=== PATIENT | female | born 1955 | race African-American/Black ===

== ENCOUNTER → 2018-03-01 | Outpatient (CLI) | payer OTHER ==
--- NOTE | 2018-03-01 09:01 | WOMENS IMAGING REPORT ---
EXAM DESCRIPTION: BILAT SCREENING MAMMO W/CAD COMPLETED DATE/TIME: 03/01/2018 8:52 am REASON FOR STUDY: SCREENING MAMMO Z12.31 ENCNTR SCREEN MAMMOGRAM FOR MALIGNANT NEOPLASM OF MIGUEL COMPARISON: 02/11/2016 and 02/01/2011. TECHNIQUE: Standard craniocaudal and mediolateral oblique views of each breast recorded using [employer] acquisition. LIMITATIONS: None. FINDINGS: No masses, calcifications or architectural distortion. No areas of suspicion. Read with the assistance of CAD. .[facility] - R2 Cenova Version 1.3 .[facility] - R2 Cenova Version 1.3 .[facility] - R2 Cenova Version 2.4 .[facility] - R2 Cenova Version 2.4 .[facility] - R2 [employer]velope Folding Machine Operator Version 9.2 IMPRESSION: NORMAL MAMMOGRAM. BIRADS 1. BREAST DENSITY: b. There are scattered areas of fibroglandular density. BIRAD: 1 NEGATIVE RECOMMENDATION: ROUTINE SCREENING COMMENT: The patient has been notified of the results by letter per SA requirements. Additional no tification policies are in place for contacting patient with suspicious or incomplete findings. Quality ID #[id number]: The [employer] recommends an annual screening mammogram for women aged 40 years or over. This facility utilizes a reminder system to ensure that all patients receive reminder letters, and/or direct phone calls for appointments. This includes reminders for routine scr eening mammograms, diagnostic mammograms, or other Breast Imaging Interventions when appropriate. Th is patient will be placed in the appropriate reminder system. The [employer] (ACR) has developed recommendations for screening MRI of the breast s in certain patient populations, to be used in conjunction with mammography. Breast MRI surveillanc e may be appropriate for women with more than 20% lifetime risk of developing breast cancer as deter mined by genetic testing, significant family history of the disease, or history of mantle radiation f or Hodgkins Disease. ACR Practice Guidelines 2008. TECHNICAL DOCUMENTATION: FINDING NUMBER: (1) ASSESSMENT: (1) JOB ID: [id number] [employer]- All Rights Reserved Reading location - IP/workstation name: [facility]
== END ==
LOC: WI 08:28
PROVIDERS: ATTEND Nurse Practitioner Family
DX: Z12.31 Encounter for screening mammogram for malignant neoplasm of breast (principal)
CPT/HCPCS: 77067

== ENCOUNTER 2018-12-19 11:14 | Emergency (ER) | payer OTHER ==
--- NOTE | 2018-12-19 11:56 | ER Document Report ---
ED Medical Screen (RME) - General Chief Complaint: Arm Pain Stated Complaint: ARM PAIN Time Seen by Provider: 12/19/18 11:42 Primary Care Provider: HIRA BELL FNP-C [Primary Care Provider] - Follow up as needed Mode of Arrival: Ambulatory Information source: Patient Notes: Patient is a 63-year-old female presenting to the emergency department with pain to her left arm that radiates behind her left shoulder blade. She reports this is a dull achy pain that is persistent. She denies any injury to this area. She does report the pain is been going on for 30 days. She denies any associated chest pain, shortness of breath or nausea however patient does have a history of hypertension hypothyroidism. Due to patient's age and the fact that she has not had any injury I do believe we need to do a cardiac work-up on her as well as evaluation of the left arm pain. Patient is in agreements with this plan. Patient was initially seen in super track as she was triaged as an ANAHI for, upgraded to ANAHI 3H and orders placed. Exam: Patient alert, oriented, answering all questions appropriately. Lung sounds clear and equal bilaterally. Heart sounds S1-S2 present, normal rate, normal rhythm. No obvious swelling, erythema or abnormality with left arm. Full range of motion of left arm. I have greeted and performed a rapid initial assessment of this patient. A comprehensive ED assessment and evaluation of the patient, analysis of test results and completion of the medical decision making process will be conducted by additional ED providers. I have specifically instructed the patient or family members with the patient to immediately return to any nursing staff should anything change in the patient's condition or with their chief complaint. This medical record was dictated with voice recognizing software. There may be grammatical, syntax errors that are unintended. TRAVEL OUTSIDE OF THE [place] IN LAST 30 DAYS: No - Related Data Allergies/Adverse Reactions: No Known Allergies Allergy (Verified 12/19/18 11:17) Past Medical History - Past Medical History Cardiac Medical History: Reports: Hx Hypertension Endocrine Medical History: Reports: Hx Hypothyroidism Musculoskeltal Medical History: Reports Hx Arthritis, Denies Hx Musculoskeletal Trauma Infectious Medical History: Denies: Hx MRSA Past Surgical History: Reports: Hx Oral Surgery - wisdom teeth - Immunizations Immunizations up to date: Yes Hx Diphtheria, Pertussis, Tetanus Vaccination: Yes Physical Exam - Vital signs Vitals: Temp Pulse Resp BP Pulse Ox 98.6 F 79 18 135/85 H 96 12/19/18 11:26 12/19/18 11:26 12/19/18 11:12/19/18 11:12/19/18 11:26 Course - Vital Signs Vital signs: Temp Pulse Resp BP Pulse Ox 98.6 F 79 18 135/85 H 96 12/19/18 11:26 12/19/18 11:26 12/19/18 11:26 12/19/18 11:26 12/19/18 11:26 Doctor's Discharge - Discharge Referrals: HIRA BELL, SHAISTA-C [Primary Care Provider] - Follow up as needed
--- NOTE | 2018-12-19 12:54 | RADIOLOGY REPORT (SQ) ---
EXAM DESCRIPTION: HUMERUS LEFT COMPLETED DATE/TIME: 12/19/2018 12:39 pm REASON FOR STUDY: L arm pain COMPARISON: None. NUMBER OF VIEWS: Two views. TECHNIQUE: Two radiographic images were acquired of the left humerus to include elbow and shoulder i n at least one projection. LIMITATIONS: None. FINDINGS: MINERALIZATION: Normal. BONES: No acute fracture or dislocation. No worrisome bone lesions. SOFT TISSUES: No obvious swelling or foreign body. OTHER: Mild degenerative changes at the shoulder. IMPRESSION: NEGATIVE STUDY OF THE LEFT HUMERUS. NO RADIOGRAPHIC EVIDENCE OF ACUTE INJURY. TECHNICAL DOCUMENTATION: JOB ID: [id number] [employer]- All Rights Reserved Reading location - IP/workstation name: [email or web address]
--- NOTE | 2018-12-19 12:55 | RADIOLOGY REPORT (SQ) ---
EXAM DESCRIPTION: CHEST 2 VIEWS COMPLETED DATE/TIME: 12/19/2018 12:34 pm REASON FOR STUDY: L arm pain/shoulder pain/cardiac work-up COMPARISON: None. EXAM PARAMETERS: NUMBER OF VIEWS: two views TECHNIQUE: Digital Frontal and Lateral radiographic views of the chest acquired. RADIATION DOSE: NA LIMITATIONS: none FINDINGS: LUNGS AND PLEURA: No opacities, masses or pneumothorax. No pleural effusion. MEDIASTINUM AND HILAR STRUCTURES: No masses or contour abnormalities. HEART AND VASCULAR STRUCTURES: Heart normal size. No evidence for failure. BONES: No acute findings. HARDWARE: None in the chest. OTHER: No other significant finding. IMPRESSION: NO ACUTE RADIOGRAPHIC FINDING IN THE CHEST. TECHNICAL DOCUMENTATION: JOB ID: [id number] [employer]- All Rights Reserved Reading location - IP/workstation name: [email or web address]
--- NOTE | 2018-12-19 13:17 | ER Document Report ---
ED General - General Chief Complaint: Arm Pain Stated Complaint: ARM PAIN Time Seen by Provider: 12/19/18 11:42 Primary Care Provider: HIRA BELL FNP-C [Primary Care Provider] - Follow up as needed Mode of Arrival: Ambulatory TRAVEL OUTSIDE OF THE [place] IN LAST 30 DAYS: No - HPI Patient complains to provider of: Left arm pain Notes: 63-year-old female presents with approximately 6 weeks of dull aching left upper extremity pain. It was hurting her worse this morning she decided to get it checked out. Pain is 8/10 throbbing in nature without radiation nothing makes it better or worse. Patient denies any exertional component or change denies nausea vomiting shortness of breath cough or chest pain. No history of coronary artery disease. - Related Data Allergies/Adverse Reactions: No Known Allergies Allergy (Verified 12/19/18 11:17) Past Medical History - General Information source: Patient - Social History Smoking Status: Unknown if Ever Smoked Family History: DM, Hypertension Patient has suicidal ideation: No Patient has homicidal ideation: No - Past Medical History Cardiac Medical History: Reports: Hx Hypertension Endocrine Medical History: Reports: Hx Hypothyroidism Musculoskeletal Medical History: Reports Hx Arthritis, Denies Hx Musculoskeletal Trauma Infectious Medical History: Denies: Hx MRSA Past Surgical History: Reports: Hx Oral Surgery - wisdom teeth - Immunizations Immunizations up to date: Yes Hx Diphtheria, Pertussis, Tetanus Vaccination: Yes Review of Systems - Review of Systems Notes: REVIEW OF SYSTEMS: CONSTITUTIONAL: -fevers, -chills EENT: -eye pain, -difficulty swallowing, -nasal congestion CARDIOVASCULAR: -chest pain, -syncope. RESPIRATORY: -cough, -SOB GASTROINTESTINAL: -abdominal pain, -nausea, -vomiting, -diarrhea GENITOURINARY: -dysuria, -hematuria MUSCULOSKELETAL: -back pain, -neck pain SKIN: -rash or skin lesions. HEMATOLOGIC: -easy bruising or bleeding. LYMPHATIC: -swollen, enlarged glands. NEUROLOGICAL: -altered mental status or loss of consciousness, -headache, -ne urologic symptoms PSYCHIATRIC: -anxiety, -depression. ALL OTHER SYSTEMS REVIEWED AND NEGATIVE. Physical Exam - Vital signs Vitals: Temp Pulse Resp BP Pulse Ox 98.6 F 79 18 135/85 H 96 12/19/18 11:26 12/19/18 11:26 12/19/18 11:26 12/19/18 11:26 12/19/18 11:26 - Notes Notes: PHYSICAL EXAMINATION: GENERAL: Well-appearing, well-nourished and in no acute distress. HEAD: Atraumatic, normocephalic. EYES: Pupils equal round and reactive to light, extraocular movements intact, sclera anicteric, conjunctiva are normal. ENT: nares patent, oropharynx clear without exudates. Moist mucous membranes. NECK: Normal range of motion, supple without lymphadenopathy LUNGS: Breath sounds clear to auscultation bilaterally and equal. No wheezes rales or rhonchi. HEART: Regular rate and rhythm without murmurs ABDOMEN: Soft, nontender, normoactive bowel sounds. No guarding, no rebound. No masses appreciated. EXTREMITIES: Normal range of motion, no pitting or edema. No cyanosis. NEUROLOGICAL: Cranial nerves grossly intact. Normal speech, normal gait. Normal sensory and motor exams. PSYCH: Normal mood, normal affect. SKIN: Warm, Dry, normal turgor, no rashes or lesions noted. Course - Re-evaluation Re-evalutation: 12/19/18 14:08 63-year-old female presents with long-standing left upper extremity pain. Reassuring physical exam. Patient's EKG is no ischemic changes, extensive lab work-up shows no leukocytosis or other gross abnormality. Troponin is negative. Patient will be discharged home follow-up PCP given strict return precautions anything should change or worsen please return - Vital Signs Vital signs: Temp Pulse Resp BP Pulse Ox 98.6 F 79 16 155/85 H 100 12/19/18 11:26 12/19/18 11:26 12/19/18 13:10 12/19/18 13:10 12/19/18 13:10 - Laboratory Result Diagrams: 12/19/18 12:46 12/19/18 12:46 Laboratory results interpreted by me: 12/19/18 12/19/18 12:46 12:46 MCV 78 L MCH 25.5 L RDW 15.4 H Total Bilirubin 0.1 L - EKG Interpretation by Me Additional EKG results interpreted by me: 12/19/18 13:59 Normal sinus rhythm, 62 bpm, no ST elevations or depression, normal IA, no pathologic T wave inversions. Discharge - Discharge Clinical Impression: Arm pain Qualifiers: Laterality: left Qualified Code(s): M79.602 - Pain in left arm Condition: Stable Disposition: HOME, SELF-CARE Instructions: Chest Wall Pain ([facility]) Referrals: HIRA BELL FNP-C [Primary Care Provider] - Follow up as needed
[2018-12-19 13:37] LABS: ABSOLUTE EOSINOPHILS # (AUTO) 0.2 10^3/uL (0.0-0.6); ABSOLUTE LYMPHOCYTES (AUTO) 2.4 10^3/uL (0.5-4.7); ABSOLUTE MONOCYTES (AUTO) 0.3 10^3/uL (0.1-1.4); ABSOLUTE NEUT (AUTO) 2.5 10^3/uL (1.7-8.2); BASOPHILS % (AUTO) 0.9 % (0-2); EOSINOPHILS % (AUTO) 3.5 % (0-6); HEMATOCRIT 37.2 % (36.0-47.0); HEMOGLOBIN 12.1 g/dL (12.0-15.5); LYMPHOCYTES % (AUTO) 43.7 % (13-45); MEAN CORPUSCULAR HEMOGLOBIN 25.5 pg (27.0-33.4); MEAN CORPUSCULAR HGB CONC 32.6 g/dL (32.0-36.0); MEAN CORPUSCULAR VOLUME 78 fl (80-97); MONOCYTES % (AUTO) 5.1 % (3-13); PLATELET COUNT 305 10^3/uL (150-450); RED BLOOD COUNT 4.75 10^6/uL (3.72-5.28); RED CELL DISTRIBUTION WIDTH 15.4 % (11.5-14.0); SEGMENTED NEUTROPHILS % (AUTO) 46.8 % (42-78); TOTAL CELLS COUNTED % (AUTO) 100 %; WHITE BLOOD COUNT 5.4 10^3/uL (4.0-10.5)
[2018-12-19 13:46] LABS: ALBUMIN 4.3 g/dL (3.5-5.0); ALKALINE PHOSPHATASE 91 U/L (38-126); ANION GAP 8 (5-19); ASPARTATE AMINO TRANSFERASE 26 U/L (14-36); BILIRUBIN,DIRECT 0.1 mg/dL (0.0-0.4); BILIRUBIN,TOTAL 0.1 mg/dL (0.2-1.3); BLOOD UREA NITROGEN 11 mg/dL (7-20); CALCIUM 10.1 mg/dL (8.4-10.2); CARBON DIOXIDE 28 mmol/L (22-30); CHLORIDE 104 mmol/L (98-107); GLUCOSE 88 mg/dL (75-110); POTASSIUM 4.7 mmol/L (3.6-5.0); TOTAL PROTEIN 8.1 g/dL (6.3-8.2)
[2018-12-19 14:17] VITALS: BP 153/90
--- NOTE | 2018-12-19 18:25 | EKG REPORT ---
SEVERITY:- BORDERLINE ECG - SINUS RHYTHM VENTRICULAR PREMATURE COMPLEX PROBABLE LEFT ATRIAL ABNORMALITY : Confirmed by: Sancho Tubbs MD 19-Dec-2018 18:25:11
== END 2018-12-19 14:27 | disposition home or self-care (01) ==
LOC: ER 11:14
DX: M79.602 Pain in left arm (principal); I10 Essential (primary) hypertension
CPT/HCPCS: 36415; 71046; 80053; 84484; 85025; 93005; 93010

== ENCOUNTER 2019-01-26 08:19 | Emergency (ER) | payer OTHER ==
--- NOTE | 2019-01-26 09:20 | ER Document Report ---
HPI - HPI Time Seen by Provider: 01/26/19 09:01 Pain Level: 4 Notes: Patient is a 63-year-old female no significant past medical history she has had who presents complaining of painful red rash from her back around to just underneath the breast that is been present for 3 days. Patient states that she has had soreness for a day or 2 before that in these areas. No other recent illness. No known insect bite. She has not been in tall grass or the levine. Denies drug allergies. Patient is unaware if she had chickenpox as a child. Denies any headache, fever, URI, sore throat, chest pain, palpitations, syncope, cough, shortness of breath, wheeze, dyspnea, abdominal pain, nausea/vomiting/diarrhea, urinary retention, dysuria, hematuria. - ROS Systems Reviewed and Negative: Yes All other systems reviewed and negative - REPRODUCTIVE Reproductive: DENIES: : Past Medical History - Social History Smoking Status: Unknown if Ever Smoked Chew tobacco use (# tins/day): No Frequency of alcohol use: None Drug Abuse: None Family History: DM, Hypertension Patient has suicidal ideation: No Patient has homicidal ideation: No - Past Medical History Cardiac Medical History: Reports: Hx Hypercholesterolemia, Hx Hypertension Endocrine Medical History: Reports: Hx Hypothyroidism Musculoskeletal Medical History: Reports Hx Arthritis, Denies Hx Musculoskeletal Trauma Infectious Medical History: Denies: Hx MRSA Past Surgical History: Reports: Hx Oral Surgery - wisdom teeth - Immunizations Immunizations up to date: Yes Hx Diphtheria, Pertussis, Tetanus Vaccination: Yes Vertical Provider Document - CONSTITUTIONAL Agree With Documented VS: Yes Notes: PHYSICAL EXAMINATION: GENERAL: Well-appearing, well-nourished and in no acute distress. HEAD: Atraumatic, normocephalic. EYES: Pupils equal round and reactive to light, extraocular movements intact, sclera anicteric, conjunctiva are normal. ENT: Nares patent and without discharge. oropharynx clear without exudates. No tonsilar hypertrophy or erythema. Moist mucous membranes. NECK: Normal range of motion, supple without lymphadenopathy LUNGS: Breath sounds clear to auscultation bilaterally and equal. No wheezes rales or rhonchi. HEART: Regular rate and rhythm without murmurs, rubs, gallops. Musculoskeletal: FROM to passive/active. Strength 5+/5. Extremities: No cyanosis, clubbing, or edema b/l. Peripheral pulses 2+. Capillary refill less than 3 seconds. NEUROLOGICAL: Normal speech, normal gait. Normal sensory, motor exams PSYCH: Normal mood, normal affect. SKIN: erythemic maculopapular rash traveling down the T5 dermatome rt side approx. Mild tenderness. Vesicular rash noted as well. No fluctuance, streaks, or purulence noted. No abscess. - INFECTION CONTROL TRAVEL OUTSIDE OF THE [place] IN LAST 30 DAYS: No Course - Re-evaluation Re-evalutation: 01/26/19 09:19 Patient is an afebrile, well-hydrated, 63-year-old female who presents with shingles rash, suspect shingles @ the T5 +/- dermatome on the right side. Vitals are acceptable without significant tachycardia, tachypnea, or hypoxia. PE is otherwise unremarkable. Patient is nontoxic-appearing and is tolerating p.o. without difficulty. No further work-up warranted. Low suspicion for any necrotizing fasciitis, SJS, SSS, drug reaction, sepsis, meningitis, syphilis, Lyme disease, Erwin spotted fever, or other systemic emergent condition at this time. Patient aware that condition can change from initial presentation and he needs to monitor symptoms closely and seek medical attention with any acute changes. Recheck with your PCM in 2 to 3 days. Consider consult with dermatology. Return to the ED with any other worsening/concerning symptoms as reviewed. Patient is in agreement. - Vital Signs Vital signs: Temp Pulse Resp BP Pulse Ox 98.5 F 97 18 149/94 H 100 01/26/19 08:24 01/26/19 08:24 01/26/19 08:24 01/26/19 08:24 01/26/19 08:24 Discharge - Discharge Clinical Impression: Rash and nonspecific skin eruption Shingles Qualifiers: Herpes zoster complications: without complications Qualified Code(s): B02.9 - Zoster without complications Condition: Stable Disposition: HOME, SELF-CARE Instructions: Shingles ([facility]) Additional Instructions: Keep the skin clean Wash with soap and water Tylenol/ibuprofen if needed Triple antibiotic ointment daily for any break in the skin Take medication as directed Monitor for any worsening symptoms Recheck with your PCM in 2-3 days Consider consult with Dermatology for ongoing/worsening symptoms Return to the ED with any worsening symptoms and/or development of fever, headache, chest pain, palpitations, syncope, shortness of breath, trouble breathing, abdominal pain, n/v/d, abscess, purulent discharge, red streaks, worsening swelling, or other worsening symptoms that are concerning to you. Prescriptions: Valacyclovir HCl [Valtrex] 1,000 mg PO TID #21 tablet Forms: Elevated Blood Pressure Referrals: HIRA BELL FNP-C [Primary Care Provider] - Follow up as needed DEREK NEELY DO [ACTIVE STAFF] - Follow up as needed
[2019-01-26 09:44] VITALS: BP 150/94
== END 2019-01-26 09:44 | disposition home or self-care (01) ==
LOC: ER 08:19
DX: B02.9 Zoster without complications (principal); R21 Rash and other nonspecific skin eruption; I10 Essential (primary) hypertension
CPT/HCPCS: 99281

== ENCOUNTER → 2019-03-22 | Outpatient (CLI) | payer OTHER ==
--- NOTE | 2019-03-22 11:42 | WOMENS IMAGING REPORT ---
EXAM DESCRIPTION: BILAT SCREENING MAMMO W/CAD COMPLETED DATE/TIME: 03/22/2019 11:17 am REASON FOR STUDY: Z12.31 SCREENING MAMMO Z12.31 ENCNTR SCREEN MAMMOGRAM FOR MALIGNANT NEOPLASM OF B RE COMPARISON: [id number] EXAM PARAMETERS: Standard craniocaudal and mediolateral oblique views of each breast recorded using digital acquisition. Read with the assistance of CAD. .[facility] - [employer] Version 9.2 LIMITATIONS: None. FINDINGS: No suspicious masses, suspicious calcifications or architectural distortion. No areas of c oncern. IMPRESSION: Negative MAMMOGRAM. BIRADS 1 BREAST DENSITY: b. There are scattered areas of fibroglandular density. BIRAD: ASSESSMENT: 1 NEGATIVE RECOMMENDATION: ROUTINE SCREENING COMMENT: The patient has been notified of the results by letter per SA requirements. Additional no tification policies are in place for contacting patient with suspicious or incomplete findings. Quality ID #[id number]: The [employer] [employer] recommends an annual screening mammogram for women aged 40 years or over. This facility utilizes a reminder system to ensure that all patients receive reminder letters, and/or direct phone calls for appointments. This includes reminders for routine scr eening mammograms, diagnostic mammograms, or other Breast Imaging Interventions when appropriate. Th is patient will be placed in the appropriate reminder system. TECHNICAL DOCUMENTATION: FINDING NUMBER: (1) ASSESSMENT: (1) JOB ID: [id number] [employer]- All Rights Reserved Reading location - IP/workstation name: [email or web address]
== END ==
LOC: WI 10:40
PROVIDERS: ATTEND Family Medicine
DX: Z12.31 Encounter for screening mammogram for malignant neoplasm of breast (principal)
CPT/HCPCS: 77067